=== PATIENT | female | born 1955 | race Caucasian/White ===

== ENCOUNTER 2023-04-05 10:47 | Emergency (ER) | payer MEDICARE ==
[2023-04-05 11:08] VITALS: BP 149/89
[2023-04-05] MEDS ORDERED: predniSONE 20 MG TABLET PO STA (11:16)
--- NOTE | 2023-04-05 11:18 | ED Physician Documentation ---
History of Present Illness - Stated complaint Stated Complaint: RT/LT ARM RASH - Chief complaint Chief Complaint: Wound - Additonal information Additional information: 67-year-old female presents emergency department for evaluation of rash on bilateral upper extremities. 5 days ago was working in her garden believes she may have come into contact with either staying metal or blackberry bushes. She did develop some superficial scratches on both her upper arms but did not think much of it until 3 days ago when she noticed a generalized erythematous scaling patchy rash on both her arms. Is nonvesicular. Nonpruritic. Nonpainful. No fevers. She has tried hydrocortisone cream and benadryl without relief. No history of similar. Review of Systems Constitutional: reports: Reviewed and negative Cardiac: reports: Reviewed and negative Respiratory: reports: Reviewed and negative Skin: reports: Rash PD PAST MEDICAL HISTORY - Present Medications Home Medications: Ambulatory Orders Medication Instructions Recorded Confirmed predniSONE [Deltasone] 40 mg PO DAILY 3 Days #6 tablet 04/05/23 - Allergies Allergies/Adverse Reactions: Allergies Allergy/AdvReac Type Severity Reaction Status Date / Time No Known Drug Allergies Allergy Verified 04/05/23 11:05 PD ED PE NORMAL - General General: Alert and oriented X 3, No acute distress - Respiratory Respiratory: Clear bilaterally - Abdomen Abdomen: Normal bowel sounds, Soft, Non tender, Non distended - Derm Derm: Other (Dry appearing erythematous macular rash on the volar surface of both forearms. Nonvesicular. Feels thicker and scaling like appearance in the flexural folds of both elbows. No lymphangitis. Nontender.) Results - Vitals Vitals: Vital Signs - 24 hr 04/05/23 10:53 Temperature 36 C L Heart Rate 75 Respiratory 16 Rate Blood Pressure 149/89 H O2 Saturation 99 Oxygen O2 Source Room air PD Medical Decision Making - ED course Complexity details: d/w patient ED course: 5 days of a rash and the volar surface of both forearms after working in the garden and coming into contact with what she believes to be stinging metal or blackberry bushes. This does not have the appearance or typical features of a cellulitis and presents more as a dermatitis. Given failure or improvement of symptoms with hydrocortisone or Benadryl I will start the patient on a 4-day course of prednisone. Discussed with her the usual emergent return precautions for failure symptoms to improve. Departure - Departure Disposition: 01 Home, Self Care Clinical Impression: Dermatitis Condition: Stable Record reviewed to determine appropriate education?: Yes Prescriptions: predniSONE [Deltasone] 40 mg PO DAILY 3 Days #6 tablet Comments: Kimberley the rash you have feels more consistent with a dermatitis or inflammation due to something you came into contact with in your garden as opposed to a cellulitis or a bacterial skin infection. I would like you to continue to apply hydrocortisone ointment to your rash twice daily for the next week. You were given your first dose of prednisone today in the emergency department and tomorrow would like you to begin taking it each day for the next 3 days. I would expect with this treatment you have marked improvement and resolution of the rash over the next week to 10 days. If not improving or getting worse in any way, you develop fevers begin to have pain please return immediately to the ER for repeat evaluation.
== END 2023-04-05 11:34 | disposition home or self-care (01) ==
LOC: ED 10:47
DX: L30.9 Dermatitis, unspecified (principal)
CPT/HCPCS: 99282; 99283; J7512